=== PATIENT | female | born 1970 | race Caucasian/White ===

== ENCOUNTER 2017-06-03 03:31 | Emergency (ER) | payer OTHER ==
[2017-06-03] MEDS ORDERED: Sodium Chloride 0.9% 1,000 ML ONE ×2 (03:54→06:49)
[2017-06-03] MEDS ORDERED: Ondansetron HCl/PF 4 MG/2 ML Vial ONE (03:54)
[2017-06-03] MEDS ORDERED: Morphine 4 MG/ML Carpuject ONE ×4 (03:54→07:51)
[2017-06-03 04:05] LABS: Anisocytosis MODERATE=16-30 cells (100X) (0-5/hpf); Band 1 % (5-11); Hemoglobin 14.5 g/dL (12.0-16.0); Lymphocytes 6 % (21-51); MDiff Complete? YES; Mean Corpuscular HGB CONC 34.1 g/dL (32.0-36.0); Mean Corpuscular Hemoglobin 34.7 pg (27.0-31.0); Monocytes 8 % (0-10); Neutrophil 85 % (42-75); PLT Morphology Comment Appears Adequate; Platelet Count 306 thou/uL (130-400); RBC Distribution Width 11.9 % (11.5-14.5); Red Blood Cell (RBC) Count 4.19 mill/uL (4.20-5.40); White Blood Cell (WBC) Count 20.7 thou/uL (4.8-10.8)
[2017-06-03 04:12] LABS: BHCG - Serum Negative (NEGATIVE); Pregs Control Bar Appear? YES (CONTROL BAR)
[2017-06-03 04:43] LABS: ALT (SGPT) 11 U/L (8-55); AST (SGOT) 16 U/L (5-34); Albumin 3.9 g/dL (3.5-5.0); Alkaline Phosphatase 92 U/L (40-150); Anion Gap 15 mmol/L (10-20); BUN (Urea Nitrogen) 7 mg/dL (7.0-18.7); Bilirubin, Total 0.4 mg/dL (0.2-1.2); Calc. Creatinine Clearance 0 mL/min (70-130); Calcium 9.2 mg/dL (7.8-10.44); Carbon Dioxide 22 mmol/L (22-29); Chloride 103 mmol/L (98-107); Estimated GFR-MDRD 75; Globulin 3.4 g/dL (2.4-3.5); Glucose 116 mg/dL (70-105); Lipase 9 U/L (8-78); Potassium 4.9 mmol/L (3.5-5.1); Protein, Total 7.3 g/dL (6.0-8.3); Sodium 135 mmol/L (136-145)
[2017-06-03 04:46] LABS: Bilirubin Negative (Negative); Blood, Urine Trace (Negative); Clarity Clear (Clear); Glucose, Urine (Dipstick) Negative (Negative); Leukocyte Small (Negative); Nitrite Negative (Negative); Protein, Urine (Dipstick) Negative (Neg-Trace); Specific Gravity, Urine 1.004 (1.002-1.036); Urobilinogen 0.2 mg/dL (0.2-1.0)
[2017-06-03 04:47] LABS: Bacteria/HPF None Seen HPF (None Seen); Squamous Epithelial 0-3 HPF (0-3); WBC/HPF None Seen HPF (0-3)
[2017-06-03] MEDS ORDERED: Meropenem 500 MG VIAL ONE (06:47)
[2017-06-03] MEDS ORDERED: Sodium Chloride 0.9% 0 ML ONE (07:41)
[2017-06-03] MEDS ORDERED: Ketorolac Tromethamine 30 MG/ML VIAL ONE (08:17)
[2017-06-03] MEDS ORDERED: Morphine 4 MG/ML Carpuject SLOW IVP SCH (08:30)
[2017-06-03] MEDS ORDERED: Iopamidol 370 76% 100 ML VIAL ONE (09:00)
--- NOTE | 2017-06-03 13:25 | CT ---
PRELIMINARY REPORT/[facility]/EMERGENCY AFTER HOURS PROCEDURE: EXAM: CT Abdomen and Pelvis With Intravenous Contrast EXAM DATE/TIME: Exam ordered 06/03/2017 6:20 AM CLINICAL HISTORY: 47 years old, female; Pain; Abdominal pain; Acute; Patient HX: Rlq pain with fever TECHNIQUE: Axial computed tomography images of the abdomen and pelvis with intravenous contrast. All CT scans at this facility use one or more dose reduction techniques, viz.: automated exposure control; ma/kV adj ustment per patient size (including targeted exams where dose is matched to indication; i.e. head); or iterative reconstruction technique. Coronal and sagittal reformatted images were created an d reviewed. CONTRAST: 96 mL of ISOVUE 370 administered intravenously. COMPARISON: No relevant prior studies available. FINDINGS: Lower thorax: The visualized portions of the lung bases are normal. ABDOMEN: Liver: There are no focal liver lesions present. Gallbladder and bile ducts: The gallbladder is normal. There is no evidence of biliary ductal dilatio n. No calcified stones. Pancreas: The pancreas is normal. No ductal dilation. Spleen: The spleen is normal. Adrenals: The adrenal glands are normal. Kidneys and ureters: There is mild RIGHT hydroureter without obstructing calculus. This may be second glenys to inflammatory process related to the RIGHT ovary. Stomach and bowel: The stomach is normal. The duodenum is unremarkable. No obstruction. No mucosal th ickening. Appendix: A normal appendix is identified. PELVIS: Bladder: The bladder is normal. Reproductive: There is a multiloculated 4.5 x 3.6 x 5.1 cm collection in the RIGHT adnexa suspicious for tubo-ovarian abscess with extensive surrounding inflammatory stranding. ABDOMEN and PELVIS: Intraperitoneal space: Normal. No free air. No significant fluid collection. Bones/joints: There are healed left rib fractures. No dislocation. Soft tissues: Normal. Vasculature: Normal. No abdominal aortic aneurysm. Lymph nodes: Normal. No enlarged lymph nodes. IMPRESSION: There is a multiloculated 4.5 x 3.6 x 5.1 cm collection in the RIGHT adnexa suspicious for tuboovaria n abscess with extensive surrounding inflammatory stranding. Thank you for allowing us to participate in the care of your patient. Dictated and Authenticated by: Sal Gardiner MD 06/03/2017 6:48 AM Central Time ([place] & [place]) FINAL REPORT EMERGENCY AFTER HOURS CT ABDOMEN AND PELVIS WITH IV CONTRAST: Date: 06/03/17 HISTORY: Right lower quadrant abdominal pain in a patient with fever. COMPARISON: None available. FINDINGS/IMPRESSION: 1. Remote left-sided lower rib fractures are present with deformity of the chest wall. Lung bases ar e clear aside from mild atelectasis. 2. Tubular fluid-filled structure with enhancement of the wall seen in the right adnexal region with mild inflammatory changes noted. Findings are worrisome for tubo-ovarian abscess. 3. Mild dilatation of the right ureter without overt hydronephrosis. This is likely attributable to the presumed tubo-ovarian abscess in the right adnexal region. 4. Subtle low density area within the posterior body of the uterus and to the right of midline measu ring 2.3 cm, probably related to small uterine fibroid. A T-shaped intrauterine contraceptive device is noted in place. 5. Small amount of free fluid in a presacral location, which is contiguous with the inflammatory luis nges in the right adnexal region. 6. No CT evidence of appendicitis. Findings are in agreement with the preliminary report by Don. POS: [facility]
== END 2017-06-03 08:47 | disposition short-term general hospital (02) ==
LOC: NAV ERS 03:31
DX: N70.93 Salpingitis and oophoritis, unspecified (principal); D72.829 Elevated white blood cell count, unspecified; F41.9 Anxiety disorder, unspecified; I10 Essential (primary) hypertension; F17.210 Nicotine dependence, cigarettes, uncomplicated; Z79.899 Other long term (current) drug therapy
CPT/HCPCS: 36415; 74177; 80053; 81003; 81015; 83605; 83690; 84703; 85025; 96361; 96365; 96375; 96376; J1885; J2185; J2270; J2405; J7050